=== PATIENT | male | born 1955 | race Caucasian/White ===

== ENCOUNTER 2017-04-30 10:54 | Outpatient (CLI) | payer BC ==
--- NOTE | 2017-04-30 14:42 | RAD ---
CHEST ONE VIEW AND RIGHT RIBS THREE VIEWS: HISTORY: A 61-year-old male with right-sided rib pain following a fall on Sunday. FINDINGS: A nondisplaced rib fracture involving the right 8th lateral rib. No pneumothorax or pleural effusio n. No acute intrathoracic disease. IMPRESSION: Nondisplaced fracture right 8th lateral rib without pneumothorax or pleural effusion. POS: [facility]
== END 2017-04-30 10:55 | disposition home or self-care (01) ==
LOC: NAV RAD 10:54
PROVIDERS: ATTEND Family Medicine
DX: R07.81 Pleurodynia (principal); S22.31XD Fracture of one rib, right side, subsequent encounter for fracture with routine healing

== ENCOUNTER 2020-12-24 11:57 | Outpatient (CLI) | payer BC | END 2020-12-24 11:58 | disposition home or self-care (01) | LOC: NAV RAD 11:57 | PROVIDERS: ATTEND Family Medicine | DX: M25.551 Pain in right hip (principal); M47.816 Spondylosis without myelopathy or radiculopathy, lumbar region | CPT/HCPCS: 72100 ==

== ENCOUNTER 2022-05-22 17:13 | Emergency (ER) | payer MEDICARE, BC ==
[~2022-05-22 17:13] MED LIST: Iopamidol 370 76% 100 ML VIAL ONE
[2022-05-22] MEDS ORDERED: Meclizine HCl 25 MG TAB ONE (18:09)
[2022-05-22] MEDS ORDERED: Sodium Chloride 0.9% 1,000 ML ONE ×2 (18:09→19:17)
[2022-05-22 18:20] LABS: #Basophils 0.1 thou/uL (0.0-0.2); #Eosinphils 0.2 thou/uL (0.0-0.7); #Lymphocytes 2.2 thou/uL (1.20-3.40); #Monocytes 1.1 thou/uL (0.11-0.59); #Neutrophils 7.9 thou/uL (1.40-6.50); %Basophils 1.1 % (0.0-1.0); %Eosinophils 1.7 % (0.0-10.0); %Lymphocytes 19.1 % (21.0-51.0); %Monocytes 9.8 % (0.0-10.0); %Neutrophils 68.4 % (42.0-75.0); Hemoglobin 15.2 g/dL (14.0-18.0); Mean Corpuscular HGB CONC 33.2 g/dL (32.0-36.0); Mean Corpuscular Volume 93.3 fl (78.0-98.0); Platelet Count 219 10x3/uL (130-400); RBC Distribution Width 11.5 % (11.5-14.5); Red Blood Cell (RBC) Count 4.91 mill/uL (4.70-6.10); White Blood Cell (WBC) Count 11.5 10x3/uL (4.8-10.8)
[2022-05-22 18:40] LABS: ALT (SGPT) 21 U/L (8-55); AST (SGOT) 22 U/L (5-34); Albumin 4.2 g/dL (3.4-4.8); Alkaline Phosphatase 73 U/L (40-110); Anion Gap 14 mmol/L (10-20); BUN (Urea Nitrogen) 19 mg/dL (8.4-25.7); Bilirubin, Total 0.7 mg/dL (0.2-1.2); Calc. Creatinine Clearance 0 mL/min (70-130); Calcium 9.1 mg/dL (7.8-10.44); Carbon Dioxide 22 mmol/L (23-31); Chloride 98 mmol/L (98-107); Estimated GFR 55; Globulin 2.7 g/dL (2.4-3.5); Glucose 90 mg/dL (80-115); Protein, Total 6.9 g/dL (5.8-8.1); Sodium 130 mmol/L (136-145)
[2022-05-22 19:11] LABS: Bilirubin Negative (Negative); Blood, Urine Negative (Negative); Clarity Clear (Clear); Glucose, Urine (Dipstick) Negative (Negative); Ketone, Urine Negative (Negative); Leukocyte Trace (Negative); Nitrite Negative (Negative); Protein, Urine (Dipstick) Negative (Neg-Trace); Urobilinogen 0.2 mg/dL (Less than 2)
[2022-05-22 19:20] LABS: Squamous Epithelial 0-3 HPF (0-3); WBC/HPF 0-3 HPF (0-3)
== END 2022-05-22 20:40 | disposition home or self-care (01) ==
LOC: NAV ERS 17:13
DX: H81.10 Benign paroxysmal vertigo, unspecified ear (principal); N28.9 Disorder of kidney and ureter, unspecified; E86.9 Volume depletion, unspecified; E03.9 Hypothyroidism, unspecified; I10 Essential (primary) hypertension; J44.9 Chronic obstructive pulmonary disease, unspecified; F17.220 Nicotine dependence, chewing tobacco, uncomplicated; Z79.82 Long term (current) use of aspirin; Z79.899 Other long term (current) drug therapy
CPT/HCPCS: 0042T; 70450; 70496; 70498; 80053; 81003; 81015; 84484; 85025; 93005; 96360; J7050; Q9967